=== PATIENT | female | born 1945 | race Caucasian/White ===

== ENCOUNTER 2024-04-19 09:12 | Day surgery (SDC) | payer MEDICARE ==
[2024-04-19] MEDS ORDERED: Depo-Medrol 40 MG/ML IM ONE (09:13)
[2024-04-19] MEDS ORDERED: Sensorcaine 0.25% 10 ML IJ ONE (09:13)
[2024-04-19 09:51] LABS: INR 1.15 (0.8-3.0); PROTIME 12.4 SECONDS (9.4-12.5)
[2024-04-19] MEDS ORDERED: DIPRIVAN 200 MG/20 ML IV ONE (10:40)
[2024-04-19] MEDS ORDERED: Lactated Ringers 1,000 ML IV ONE (11:57)
--- NOTE | 2024-04-19 12:55 | XRAY ---
Indication: Right L4-S1 MBB. Intraoperative fluoroscopy provided for 8 seconds. Single digital spot image submitted for interpretation demonstrates posterior needle tips projecting over the expected right L4-S1 nerve roots. Correlate with intraoperative findings/report.
--- NOTE | 2024-04-19 14:38 | XRAY ---
8 seconds of fluoroscopy was used in surgery for a right L4-S1 MBB.
== END 2024-04-19 11:10 | disposition home or self-care (01) ==
LOC: SDC-PAIN 09:12
PROVIDERS: ATTEND Psychiatry & Neurology Pain Medicine
DX: M47.816 Spondylosis without myelopathy or radiculopathy, lumbar region (principal); Z79.01 Long term (current) use of anticoagulants
CPT/HCPCS: 36415; 64493; 64494; 72020; 77002; 85610; 93005; J2704

== ENCOUNTER 2024-05-31 12:39 | Day surgery (SDC) | payer MEDICARE ==
[2024-05-31] MEDS ORDERED: BUPIVACAINE 0.5% VIAL IJ ONE (12:40)
[2024-05-31] MEDS ORDERED: Depo-Medrol 40 MG/ML IM ONE (12:40)
[2024-05-31 13:46] LABS: INR 1.14 (0.8-3.0); PROTIME 12.3 SECONDS (9.4-12.5)
[2024-05-31] MEDS ORDERED: Lactated Ringers 1,000 ML IV ONE (14:19)
[2024-05-31] MEDS ORDERED: DIPRIVAN 200 MG/20 ML IV ONE (14:21)
--- NOTE | 2024-05-31 16:36 | XRAY ---
Indication: Right L4-S1 MBB. Intraoperative fluoroscopy provided for 13 seconds. Single digital spot image submitted for interpretation demonstrates posterior needle tips projecting over the expected right L4-S1 nerve roots. Correlate with intraoperative findings/report.
--- NOTE | 2024-05-31 16:57 | XRAY ---
13 seconds of fluoroscopy was used in surgery for a right L4-S1 MBB.
== END 2024-05-31 14:55 | disposition home or self-care (01) ==
LOC: SDC-PAIN 12:39
PROVIDERS: ATTEND Psychiatry & Neurology Pain Medicine
DX: M47.816 Spondylosis without myelopathy or radiculopathy, lumbar region (principal); Z79.01 Long term (current) use of anticoagulants
CPT/HCPCS: 36415; 64493; 64494; 72020; 77002; 85610; J2704

== ENCOUNTER 2024-06-22 11:27 | Day surgery (SDC) | payer MEDICARE ==
[2024-06-22] MEDS ORDERED: BUPIVACAINE 0.5% VIAL IJ ONE (11:28)
[2024-06-22] MEDS ORDERED: Depo-Medrol 40 MG/ML IM ONE (11:28)
[2024-06-22] MEDS ORDERED: LIDOCAINE HCL 1% AMPUL 5 ML IJ ONE (11:28)
[2024-06-22 12:01] LABS: INR 1.1 (0.8-3.0); PROTIME 11.9 SECONDS (9.4-12.5)
[2024-06-22] MEDS ORDERED: DIPRIVAN 200 MG/20 ML IV ONE (12:47)
--- NOTE | 2024-06-22 15:01 | XRAY ---
Indication: Right L4-S1 RFA. Intraoperative fluoroscopy provided for 25 seconds. 4 digital spot image submitted for interpretation demonstrates posterior needle tips projecting over the expected right L4-S1 nerve roots. Correlate with intraoperative findings/report.
--- NOTE | 2024-06-22 16:44 | XRAY ---
25 seconds of fluoroscopy was used in surgery for a right L4-S1 RFA.
== END 2024-06-22 13:30 | disposition home or self-care (01) ==
LOC: SDC-PAIN 11:27
PROVIDERS: ATTEND Psychiatry & Neurology Pain Medicine
DX: M47.816 Spondylosis without myelopathy or radiculopathy, lumbar region (principal); Z79.899 Other long term (current) drug therapy; Z79.01 Long term (current) use of anticoagulants
CPT/HCPCS: 36415; 64635; 64636; 72100; 77002; 85610; 99100; J2704

== ENCOUNTER 2024-08-03 10:21 | Day surgery (SDC) | payer MEDICARE ==
[2024-08-03] MEDS ORDERED: LIDOCAINE HCL 1% AMPUL 5 ML IJ ONE (10:22)
[2024-08-03] MEDS ORDERED: BUPIVACAINE 0.5% VIAL IJ ONE (10:22)
[2024-08-03] MEDS ORDERED: Depo-Medrol 40 MG/ML IM ONE (10:22)
[2024-08-03 11:30] LABS: INR 3.43 (0.8-3.0); PROTIME 34.5 SECONDS (9.4-12.5)
--- NOTE | 2024-08-03 13:53 | XRAY ---
Indication: Left shoulder and subacromial bursa injection. Intraoperative fluoroscopy provided for 23 seconds. 2 digital spot image submitted for interpretation demonstrates needle tip projecting over left glenohumeral joint superiorly. Second needle tip subacromial. Small amount of contrast injected for needle tip placement. Correlate with intraoperative findings/report. Incidental incompletely visualized left pacemaker
--- NOTE | 2024-08-03 13:55 | XRAY ---
Indication: Right greater trochanter bursa injection. Intraoperative fluoroscopy provided for 7 seconds. Single digital spot image submitted for interpretation demonstrates needle tip projecting lateral to right greater trochanter. Small amount of contrast injected for needle tip placement. Correlate with intraoperative findings/report.
--- NOTE | 2024-08-03 14:45 | XRAY ---
23 seconds of fluoroscopy was used in surgery for a left intra-articular shoulder and subacromial bursa injection.
--- NOTE | 2024-08-03 14:45 | XRAY ---
7 seconds of fluoroscopy was used in surgery for a right greater trochanteric bursa injection.
== END 2024-08-03 12:49 | disposition home or self-care (01) ==
LOC: SDC-PAIN 10:21
PROVIDERS: ATTEND Psychiatry & Neurology Pain Medicine
DX: M19.012 Primary osteoarthritis, left shoulder (principal); M75.52 Bursitis of left shoulder; M16.11 Unilateral primary osteoarthritis, right hip; Z79.01 Long term (current) use of anticoagulants
CPT/HCPCS: 20610; 36415; 73030; 73501; 77002; 85610; Q9966

== ENCOUNTER 2024-10-05 12:33 | Day surgery (SDC) | payer MEDICARE ==
[2024-10-05] MEDS ORDERED: BUPIVACAINE 0.5% VIAL IJ ONE (12:34)
[2024-10-05] MEDS ORDERED: Depo-Medrol 40 MG/ML IM ONE (12:34)
[2024-10-05] MEDS ORDERED: LIDOCAINE HCL 1% AMPUL 5 ML IJ ONE (12:34)
[2024-10-05 13:45] LABS: INR 2.39 (0.8-3.0); PROTIME 24.6 SECONDS (9.4-12.5)
--- NOTE | 2024-10-05 16:34 | XRAY ---
Indication: Bilateral SI joint injection. Intraoperative fluoroscopy provided for 27 seconds. 3 digital spot images submitted for interpretation demonstrates posterior needle tips projecting over left and right SI joints. Small amount of contrast injected for needle tip placement. Correlate with intraoperative findings/report. Incidental incompletely visualized right hip arthroplasty.
--- NOTE | 2024-10-05 16:38 | XRAY ---
27 seconds of fluoroscopy was used in surgery for a bilateral sacroiliac joint injection.
== END 2024-10-05 15:05 | disposition home or self-care (01) ==
LOC: SDC-PAIN 12:33
PROVIDERS: ATTEND Psychiatry & Neurology Pain Medicine
DX: M46.1 Sacroiliitis, not elsewhere classified (principal); Z79.01 Long term (current) use of anticoagulants
CPT/HCPCS: 27096; 36415; 72202; 77002; 85610; Q9966